=== PATIENT | female | born 1990 | race Two or more races ===

== ENCOUNTER → 2017-07-12 | Day surgery (SDC) | payer OTHER ==
[~2017-07-12] MED LIST: DICLOFENAC POTA50 MG PO; ZITHROMAX500 MG PO
== END | disposition home or self-care (01) ==
LOC: CIR.AMB 07:11
DX: O02.1 Missed abortion (principal)

== ENCOUNTER 2018-08-01 07:24 | Day surgery (SDC) | payer OTHER ==
[2018-08-01] MEDS ORDERED: ZITHROMAX500 MG PO (14:44)
[2018-08-01] MEDS ORDERED: NAPROXEN SODIU550 M1 PO (14:44)
== END 2018-08-01 18:27 | disposition home or self-care (01) ==
LOC: CIR.AMB 07:24
DX: O02.1 Missed abortion (principal); Z3A.08 8 weeks gestation of pregnancy

== ENCOUNTER 2019-07-23 14:48 | Inpatient (IN) | payer OTHER ==
[~2019-07-23] VITALS: Ht 175.3 cm; Wt 97.5 kg
[~2019-07-23 14:48] MED LIST changes: +NAPROXEN SODIU550 M1 PO
[2019-07-23] MEDS ORDERED: PRENA1 CHEW TA1.4 MG PO (15:39)
== END 2019-07-26 12:15 | disposition home or self-care (01) | DRG 787 ==
LOC: LDR 14:48 → OB/GYN 14:48
PROVIDERS: ADMIT Obstetrics & Gynecology
PROC: 3E033VJ Introduction of Other Hormone into Peripheral Vein, Percutaneous Approach (ICD-10-PCS; 2019-07-23)
PROC: 4A1HXFZ Monitoring of Products of Conception, Cardiac Rhythm, External Approach (ICD-10-PCS; 2019-07-23)
PROC: 10D00Z1 Extraction of Products of Conception, Low, Open Approach (ICD-10-PCS; principal; 2019-07-23 17:00)
DX: O76 Abnormality in fetal heart rate and rhythm complicating labor and delivery (principal); E72.12 Methylenetetrahydrofolate reductase deficiency; O99.824 Streptococcus B carrier state complicating childbirth; O26.23 Pregnancy care for patient with recurrent pregnancy loss, third trimester; O69.81X0 Labor and delivery complicated by cord around neck, without compression, not applicable or unspecified; Z3A.39 39 weeks gestation of pregnancy; Z37.0 Single live birth